=== PATIENT | female | born 1950 | race Caucasian/White ===

== ENCOUNTER 2023-07-31 11:30 | Outpatient (CLI) | payer MEDICARE, SELFPAY ==
--- NOTE | 2023-07-31 | IMM_PTH ---
PATIENT: LUIS NÚÑEZ LOC: [facility] U#:[id number] AGE/SX: 73/F ROOM: RE07/31/[address]: Dr. Dakotah Torres MD : 1950 BED: DIS: 07/31/2023 SPEC #: [id number] RECD: 08/02/23 12:47 STATUS: DESIREE REQ #: [id number] ALTON: 07/31/23 00:[address]: Dakotah Torres DEPT: IMMUNOHISTOCHEMISTRY RECD BY: Constanza Love ENTERED: 08/02/23 12:49 SP TYPE: IMMUNO OTHR DR: Dr. Prashant Rodarte MD Tissues: Conjunctiva, NOS Procedures: BCL-2 (add) BCL-6 (add) CD10 (add) CD20 (add) CD23 (add) CD3 (add) CD43 (add) CD45 (add) CD5 (add) CD79A (add) CK8 (add) CYCLIN (add) KI-67 (add) Pankeratin (initial) PHYSICIAN & [address] [address] SPECIMEN INFORMATION: Tissue Source: Right eye Clinical Info: Conjunctiva lesion removal Specimen Number: [id number] CPT code: 47917,65053g93 METHODOLOGY: Deparaffinized sections of prefer/formalin-fixed tissue or PAP/DQ stained slides are incubated with monoclonal/polyclonal antibodies/oligonucleotide probes. Localization is made via biotin free immunoperoxidase method. Appropriate controls are performed and reacted as expected. Results on target cell population are indicated in the following table: RESULTS: ANTIBODY / CLONE RESULT AE1-3 (AE1/AE3/PCK26) negative CK8 (90fkzdQ50) negative CD3 (PS1) negative CD5 (SP10) negative CD20 (L26) positive CD43 (L60) positive CD45 (RP2/18) positive CD79a (11E3) positive CD10 (56C6) negative CD23 (1B12) negative BCL-2 (bcl-2/100/D5) positive BCL-6 (OW817E/A8) negative Cyclin D1/BCL-1 (SP4) negative Ki-67 (30-9) positive, low (<10%) These tests were developed and their performance characteristics determined by [facility]. They may not have been cleared or approved by the [place]. Food and Drug Administration. The FDA has determined that such clearance or approval is not necessary. The above immunohistochemical/dualISH markers are ordered and reviewed by the Pathologist. 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 See comment. SJ/mr 08/10/23 Comment: The specimen is sent to [facility] for expert opinion, reviewed by Dr. Gant and the above diagnosis is rendered. The complete report is viewable in the patient's EMR. Case has been reviewed in consultation with Dr. Torres who concurs with the above diagnosis. IDC:[email or web address]
--- NOTE | 2023-07-31 | LES_PTH ---
PATIENT: LUIS NÚÑEZ LOC: [facility] U#:[id number] AGE/SX: 73/F ROOM: RE07/31/[address]: Dr. Dakotah Torres MD : 1950 BED: DIS: 07/31/2023 SPEC #: [id number] RECD: 07/31/23 15:36 STATUS: DESIREE REQ #: [id number] ALTON: 07/31/23 00:[address]: Dakotah Torres DEPT: SURGICAL PATHOLOGY RECD BY: Aileen Harris ENTERED: 08/01/23 09:23 SP TYPE: Lesion OTHR DR: Dr. 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 See comment. / 08/10/23 COMMENT The specimen is sent to [facility] for expert opinion, reviewed by Dr. Gant and the above diagnosis is rendered. The complete report is viewable in the patient's EMR. Immunohistochemistry ([id number]) supports the above diagnosis. Correlation with clinical findings and appropriate follow up are necessary. Case has been reviewed in consultation with Dr. Torres who concurs with the above diagnosis. IDC:AM MICROSCOPIC DESCRIPTION Slides are reviewed. GROSS DESCRIPTION Received is one container labeled with the patient's name and not further designated. The specimen consists of a piece of modi-light yellow soft tissue measuring 0.5x 0.5 x 0.2cm. The entire specimen is submitted into one cassette. / 08/01/23 TC:0 CPT: 46535 ADDENDUM ADDENDUM ADDENDUM ADDENDUM ADDENDUM ADDENDUM ADDENDUM ADDENDUM ADDENDUM ADDENDUM ADDENDUM ADDENDUM ADDENDUM 09/05/2023 08:33 ADDENDUM 10/30/2023 15:12 ADDENDUM 09/05/2023 08:33 ADDENDUM 09/05/2023 08:33 ADDENDUM 09/05/2023 08:33 ADDENDUM 09/05/2023 08:33 This addendum is added to incorporate an outside pathology consultation report. The case was examined at [facility] (#[id number]) and the following diagnosis was rendered. 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 Please see complete above mentioned consultation report in EMR The above diagnosis is in compliance with the 5th edition of the World Health Organization Classification of Haematolymphoid Tumours: Lymphoid Neoplasms. Leukemia 35, 0036-5275 (2021)
== END 2023-07-31 23:59 | disposition home or self-care (01) ==
LOC: LABSPEC 08-01 09:10
PROVIDERS: PCP Emergency Medicine; Visit Provider Ophthalmology
DX: R69 Illness, unspecified (principal)
CPT/HCPCS: 88305; 88325; 88341; 88342